=== PATIENT | female | born 1960 | race Caucasian/White ===

== ENCOUNTER → 2017-04-25 | Outpatient (CLI) | payer BC | LOC: BRMIMAGING 12:32 | PROVIDERS: ATTEND Internal Medicine | DX: M12.841 Other specific arthropathies, not elsewhere classified, right hand (principal); M12.842 Other specific arthropathies, not elsewhere classified, left hand; M12.871 Other specific arthropathies, not elsewhere classified, right ankle and foot; M12.872 Other specific arthropathies, not elsewhere classified, left ankle and foot; E83.118 Other hemochromatosis; M14.841 Arthropathies in other specified diseases classified elsewhere, right hand | CPT/HCPCS: 73130-PO; 73610-PO; 73630-PO ==